=== PATIENT | female | born 1975 | race Caucasian/White ===

== ENCOUNTER 2025-01-22 16:00 | Emergency (ER) | payer SELFPAY ==
[~2025-01-22] VITALS: Ht 167.6 cm; Wt 108.9 kg
== END 2025-01-22 17:21 | disposition home or self-care (01) ==
LOC: ED 16:00
DX: M25.571 Pain in right ankle and joints of right foot (principal); M25.572 Pain in left ankle and joints of left foot; R22.43 Localized swelling, mass and lump, lower limb, bilateral; Z63.0 Problems in relationship with spouse or partner; Z91.040 Latex allergy status